=== PATIENT | male | born 1980 | race American Indian/Alaskan Native ===

== ENCOUNTER 2022-02-13 23:46 | Emergency (ER) | payer SELFPAY ==
[2022-02-14 11:21] VITALS: BP 136/73
[2022-02-14] MEDS ORDERED: HYDROcodone/ACETAMINOPHEN 7.5-325MG TAB PO ONE (12:20)
[2022-02-14] MEDS ORDERED: CLINDAMYCIN 300 MG CAP PO ONE (12:20)
[2022-02-14] MEDS ORDERED: IBUPROFEN 600 MG TAB PO ONE (12:20)
[2022-02-14] MEDS ORDERED: ONDANSETRON 4 MG ODT TAB PO ONE (12:21)
[2022-02-14] MEDS ORDERED: LIDOCAINE (1%) 10 MG/1 ML VIAL 20 ML MDV INFILTRATI ONE (12:21)
--- NOTE | 2022-02-14 12:46 | Emergency Department Report ---
ED General Adult HPI - General Chief complaint: Dental/Oral Stated complaint: TOOTH PAIN Source: patient Mode of arrival: Ambulatory Limitations: No Limitations - History of Present Illness Initial comments: Patient is a 41-year-old -O[place]i male with a history of chronic recurrent gingivitis, dental caries and dental abscesses presents to the ED with complaint of acute exacerbation of his chronic dental pain characterized by swollen, painful left maxillary gingiva that extends to the hard palate of his mouth for the last 1 month, worse in the last 2 days. Patient states that he was initially evaluated at another hospital about 2 months ago and given oral antibiotics which he completed and which also helped with the dental abscess. Patient states that in the last 1 week the pain and the swelling got worse. Patient denies dizziness, syncope, chest pain or shortness of breath, nausea and vomiting, dysphagia, dysphonia, sore throat, headache, back pain or neck pain. MD Complaint: left maxillary gingival swelling, dental abscess, dental caries -: Gradual, month(s) (2) Location: mouth Radiation: non-radiation Severity scale (0 -10): 8 Quality: aching, sharp Consistency: constant Worsens with: none Associated Symptoms: denies other symptoms. denies: confusion, chest pain, cough, diaphoresis, fever/chills, headaches, loss of appetite, malaise, nausea/vomiting, rash, seizure, shortness of breath, syncope, weakness, other Treatments Prior to Arrival: none - Related Data Home Medications Medication Instructions Recorded Confirmed Last Taken Ibuprofen 600 mg PO Q6HR 02/14/22 02/14/22 Unknown Previous Rx's Medication Instructions Recorded Last Taken Type Clindamycin [Clindamycin CAP] 300 mg PO Q8H #30 cap 02/14/22 Unknown Rx Ibuprofen [Motrin] 800 mg PO Q8HR PRN #30 tablet 02/14/22 Unknown Rx metroNIDAZOLE [Flagyl TAB] 500 mg PO Q8HR #30 tablet 02/14/22 Unknown Rx traMADoL [Ultram] 50 mg PO Q6HR PRN #12 tablet 02/14/22 Unknown Rx Allergies Allergy/AdvReac Type Severity Reaction Status Date / Time No Known Allergies Allergy Verified 02/14/22 11:21 ED Review of Systems ROS: Stated complaint: TOOTH PAIN Other details as noted in HPI Constitutional: denies: chills, fever Eyes: denies: eye pain, eye discharge, vision change ENT: dental pain (left maxillary gingival pain and swelling; left maxillary premolar and molar tooth tooth ache), other (Swollen painful hard palate). denies: ear pain, throat pain Respiratory: denies: cough, shortness of breath, wheezing Cardiovascular: denies: chest pain, palpitations Endocrine: no symptoms reported Gastrointestinal: denies: abdominal pain, nausea, vomiting, diarrhea Genitourinary: denies: urgency, dysuria Musculoskeletal: denies: back pain, joint swelling, arthralgia Skin: denies: rash, lesions Neurological: denies: headache, weakness, paresthesias Psychiatric: denies: anxiety, depression Hematological/Lymphatic: denies: easy bleeding, easy bruising ED Past Medical Hx - Medications Home Medications: Home Medications Medication Instructions Recorded Confirmed Last Taken Type Clindamycin [Clindamycin CAP] 300 mg PO Q8H #30 cap 02/14/22 Unknown Rx Ibuprofen 600 mg PO Q6HR 02/14/22 02/14/22 Unknown History Ibuprofen [Motrin] 800 mg PO Q8HR PRN #30 tablet 02/14/22 Unknown Rx metroNIDAZOLE [Flagyl TAB] 500 mg PO Q8HR #30 tablet 02/14/22 Unknown Rx traMADoL [Ultram] 50 mg PO Q6HR PRN #12 tablet 02/14/22 Unknown Rx ED Physical Exam - General Limitations: No Limitations General appearance: alert, in no apparent distress - Head Head exam: Present: atraumatic, normocephalic, normal inspection - Eye Eye exam: Present: normal appearance, PERRL, EOMI Pupils: Present: normal accommodation - ENT ENT exam: Present: mucous membranes moist, TM's normal bilaterally, normal external ear exam, other (Swollen, tender left maxillary gingiva and hard palate; tender left maxillary premolar and molar teeth) - Neck Neck exam: Present: normal inspection, full ROM. Absent: tenderness - Respiratory Respiratory exam: Present: normal lung sounds bilaterally. Absent: respiratory distress, wheezes, rales, stridor, chest wall tenderness, accessory muscle use, decreased breath sounds, other - Cardiovascular Cardiovascular Exam: Present: regular rate, normal rhythm, normal heart sounds. Absent: systolic murmur, diastolic murmur, rubs, gallop - GI/Abdominal GI/Abdominal exam: Present: soft, normal bowel sounds. Absent: tenderness, guarding, rebound, hyperactive bowel sounds, hypoactive bowel sounds, organomegaly - Extremities Exam Extremities exam: Present: normal inspection, full ROM, normal capillary refill. Absent: tenderness - Back Exam Back exam: Present: normal inspection, full ROM. Absent: tenderness, CVA tenderness (R), CVA tenderness (L), muscle spasm, paraspinal tenderness, vertebral tenderness - Neurological Exam Neurological exam: Present: alert, oriented X3, CN II-XII intact, normal gait, reflexes normal - Psychiatric Psychiatric exam: Present: normal affect, normal mood - Skin Skin exam: Present: warm, dry, intact, normal color. Absent: rash ED Course Vital Signs 02/14/22 02/14/22 02/14/22 00:05 09:08 11:20 Temperature 98.0 F 97.7 F 97.8 F Pulse Rate 86 77 72 Respiratory 18 16 18 Rate Blood Pressure 120/66 Blood Pressure 121/75 136/73 [Right] O2 Sat by Pulse 100 100 100 Oximetry - I & D Left Upper Jaw Type of Procedure: Simple Site: Left maxillary gingiva Blade Size: 20-gauge needle I & D Procedure: sterile drapes applied Progress: The left maxillary gingiva was anesthetized with lidocaine 1% solution. When anesthesia was fully achieved, a 20-gauge needle was used to aspirate the fluctuant left maxillary gingival abscess. Copious thick yellowish discharge was aspirated. Patient tolerated the procedure well. Patient was thereafter discharged home on pain medication and oral antibiotics and advised to follow-up with his dentist in 7 to 10 days for reevaluation ED Medical Decision Making - Medical Decision Making This is a 41-year-old -O[place]i male with a history of chronic recurrent gingivitis, dental caries and dental abscesses presents to the ED with complaint of acute exacerbation of his chronic dental pain characterized by swollen, painful left maxillary gingiva that extends to the hard palate of his mouth for the last 1 month, worse in the last 2 days. Patient states that he was initially evaluated at another hospital about 2 months ago and given oral antibiotics which he completed and which also helped with the dental abscess. Patient states that in the last 1 week the pain and the swelling got worse. In the ED, patient is alert and oriented x3 and is not in any distress. Patient is hemodynamically stable. Patient was treated for pain in the ED and a dental block was also achieved with lidocaine 1% solution. The left maxillary gingival fluctuant abscess was also aspirated with a 21-gauge needle, resulting in thick yellowish copious discharge. Patient tolerated the procedure well. Patient will discharge home on medications for pain and advised to follow-up with his primary care physician or dentist in 7 to 10 days for reevaluation. Patient was advised return to the ED immediately if symptoms get worse. - Differential Diagnosis Dental abscess; gingivitis; dental caries Critical care attestation.: If time is entered above; I have spent that time in minutes in the direct care of this critically ill patient, excluding procedure time. ED Disposition Clinical Impression: Dental abscess, Chronic gingivitis, Dental caries Disposition: 01 HOME / SELF CARE / HOMELESS Is pt being admited?: No Does the pt Need Aspirin: No Condition: Stable Instructions: Dental Abscess, [id number], Trench Mouth, Dental Extraction, Care After, [id number] Additional Instructions: Take medication with food, drink plenty of fluids, follow-up with the dentist in 7 to 10 days for reevaluation. Return to the ED immediately if symptoms get worse. Prescriptions: Clindamycin [Clindamycin CAP] 300 mg PO Q8H #30 cap metroNIDAZOLE [Flagyl TAB] 500 mg PO Q8HR #30 tablet Ibuprofen [Motrin] 800 mg PO Q8HR PRN #30 tablet PRN Reason: Pain , Severe (7-10) traMADoL [Ultram] 50 mg PO Q6HR PRN #12 tablet PRN Reason: Pain Referrals: [facility] [Provider Group] - 7-10 days [facility] [Outside] - 7-10 days Forms: Work/School Release Form(ED) Time of Disposition: 12:53 Print Language: TURKISH
== END 2022-02-14 13:41 | disposition home or self-care (01) ==
LOC: ED 23:46
DX: K02.9 Dental caries, unspecified (principal); K04.7 Periapical abscess without sinus; K05.10 Chronic gingivitis, plaque induced
CPT/HCPCS: 99282; J3490; Q0162